=== PATIENT | male | born 1990 | race Caucasian/White ===

== ENCOUNTER 2020-10-26 09:17 | Inpatient (IN) | payer SELFPAY ==
[2020-10-26 09:19] VITALS: BP 125/87; PULSE 102; RESP 15; TEMP 36.6; O2SAT 99; BMI 21.8
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
[2020-10-26 09:41] VITALS: O2SAT 99
[2020-10-26 09:45] LABS: Basophils # 0.1 10^3/uL (0.0-0.1); Basophils % 1.4 %; Eosinophils # 0.3 10^3/uL (0.0-0.8); Eosinophils % 3.6 %; Hemoglobin 15.1 g/dL (11.7-16.6); Lymphocytes # 1.9 10^3/uL (0.8-4.8); Lymphocytes % 22.3 %; Mean Corpuscular HGB Conc 32.8 g/dL (30.0-36.0); Mean Corpuscular Hemoglobin 30.1 pg (28.0-34.0); Mean Corpuscular Volume 91.8 fL (80-94); Mean Platelet Volume 10.1 fL (7.4-10.4); Monocytes # 0.8 10^3/uL (0.2-0.9); Monocytes % 9.5 %; Neutrophils # 5.45 10^3/uL (1.8-7.7); Neutrophils % 62.9 %; Nucleated Red Blood Cells % 0 %; Platelet Count 263 10^3/cmm (130-400); Red Blood Count 5.01 10^6/uL (4.1-5.3); Red Cell Distribution Width 12.6 % (12.1-15.1); White Blood Count 8.7 10^3/uL (4.0-10.0)
[2020-10-26] MEDS: nicotine 21 mg Patch 1 PATCH TRANSDERMA (09:45)
[2020-10-26] MEDS: LORazepam 1 mg Tablet PO (09:45)
[2020-10-26 10:08] LABS: Alanine Aminotransferase 15 U/L (0-41); Albumin Level 3.9 g/dL (3.5-5.2); Alkaline Phosphatase 83 IU/L (40-130); Anion Gap 11.3 (5-19); Aspartate Amino Transferase 13 U/L (0-40); Blood Urea Nitrogen 8 mg/dL (6-20); Calcium 8.7 mg/dL (8.5-10.5); Carbon Dioxide 26 mmol/L (22-29); Chloride 107 mmol/L (98-107); Globulin 2.5 g/dL (1.3-4.6); Glomerular Filtration Rate 97.8 mL/min (90-130); Glucose 92 mg/dL (65-115); Osmolality Calculated 288 mOsm/kg (285-295); Potassium 4.3 mmol/L (3.5-5.1); Sodium 140 mmol/L (136-145); Total Bilirubin 0.2 mg/dL (0.15-1.2); Total Protein 6.4 g/dL (6.6-8.7)
[2020-10-26 10:12] LABS: Acetaminophen < 5.0 ug/mL (10-30); Salicylate < 0.3 mg/dL (3-10)
[2020-10-26 10:39] LABS: Add Urine Microscopic? NO; Charge for UA Resulting for Rev
[2020-10-26 10:58] LABS: Bilirubin Urine Neg (Negative); Blood Urine Neg (Negative); Glucose Urine UA Norm (Normal); Ketones Urine Negative (Negative); Leukocyte Esterase Urine Negative (Negative); Nitrate Urine Negative (Negative); Protein Urine Neg (Negative); Urine Appearance Clear (CLEAR); Urine Color Yellow (Yellow); Urobilinogen Urine Norm (Negative); pH Urine 5 (5-7)
--- NOTE | 2020-10-26 10:58 | PC.NURSE ---
patient is resting. no acute distress noted at this time.
[2020-10-26 11:06] LABS: Amphetamines Screen Urine Positive (Negative); Barbiturates Screen Urine Negative (Negative); Benzodiazepines Screen Urine Negative (Negative); Cocaine Screen Urine Negative (Negative); Opiate Screen Urine Negative (Negative); PCP Screen Urine Negative (Negative); THC Screen Urine Positive (Negative)
[2020-10-26 13:10] VITALS: BP 116/79; PULSE 100; RESP 18; TEMP 36.7; O2SAT 98
[2020-10-26 14:00] VITALS: BP 119/75; PULSE 102; RESP 18; TEMP 36.9; O2SAT 98
[2020-10-26] MEDS: quetiapine 100 mg Tablet 200 MG PO (21:16)
[2020-10-26] MEDS: OLANZapine 5 mg ODT PO (21:17)
[2020-10-26 21:28] VITALS: BP 124/75; PULSE 107; RESP 18; TEMP 37.3; O2SAT 95
[2020-10-26] MEDS: nicotine 2 mg Gum BUCCAL (21:47)
[2020-10-26] MEDS: acetaminophen 325 mg Tablet 650 MG PO (21:55)
--- NOTE | 2020-10-26 22:00 | PC.NURSE ---
Addendum entered by Deysi Worrell RN 10/27/20 01:50: Pt endorses SI without a plan, contracted for safety. Pt states he is having VH, seeing shadows that are tormenting Original Note: Behavior Pt is irritable, yelled at nursing staff to Get the hell out of here. He later apologized for his outburst, stating, Today has not been wonderful, I just upset. Pt stated he had pain in his leg that was rated 6-7, near the site of prosthetic. Tylenol given. Pt requested a Nicotine Patch, offered gum, pt refused. Pt showered to clear his head and He went to bed shortly after this.
[2020-10-27 06:00] VITALS: BP 122/83; PULSE 91; RESP 17; TEMP 36.6; O2SAT 98
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
[2020-10-27 09:30] VITALS: BP 122/83
[2020-10-27] MEDS: cloNIDine 0.1 mg Tablet PO ×2 (09:30→21:30)
[2020-10-27] MEDS: fluoxetine 20 mg Capsule PO (09:30)
[2020-10-27] MEDS: nicotine 21 mg Patch 1 PATCH TRANSDERMA (11:46)
[2020-10-27 14:00] VITALS: BP 103/66; PULSE 93; RESP 20; TEMP 36.2; O2SAT 99
[2020-10-27] MEDS: quetiapine 25 mg Tablet 50 MG PO (15:38)
[2020-10-27 21:30] VITALS: BP 129/73
[2020-10-27] MEDS: quetiapine 100 mg Tablet 200 MG PO (21:30)
[2020-10-27 22:00] VITALS: BP 129/73; PULSE 96; RESP 17; TEMP 36.9; O2SAT 98
[2020-10-27] MEDS: hyDROXYzine 25 mg Capsule 50 MG PO (23:54)
--- NOTE | 2020-10-27 23:56 | PC.NURSE ---
given Vistaril for anxiety
[2020-10-28] MEDS: acetaminophen 325 mg Tablet 650 MG PO (02:42)
[2020-10-28 06:00] VITALS: BP 126/68; PULSE 84; RESP 16; TEMP 36.8; O2SAT 99
[2020-10-28] MEDS: fluoxetine 20 mg Capsule PO (09:17)
[2020-10-28] MEDS: quetiapine 25 mg Tablet 50 MG PO ×2 (09:17→17:51)
[2020-10-28] MEDS: cloNIDine 0.1 mg Tablet PO ×2 (09:17→20:56)
[2020-10-28 14:00] VITALS: BP 128/73; PULSE 97; RESP 20; TEMP 36.6; O2SAT 98
[2020-10-28] MEDS: hyDROXYzine 25 mg Capsule 50 MG PO (14:04)
--- NOTE | 2020-10-28 18:48 | P.PN_ITS ---
Subjective NPU Subjective: Interval history: Patient presents today once again very upset and even more volatile than he was yesterday. He continued to express anger towards his father for being here but further identified that the place he had to stay in [place] was just a trap house. He identified that if he was discharged he might as well just walk in front of a truck or blow his brains out. Then he was very insistent that he let out slamming doors and attacking the door that leads to outside. He was unable to de-escalate and was given some space and was very close to needing a code 10. Mental Status Exam MSE Comments: This is a slender white male in hospital scrubs with limited grooming and eye contact. No abnormal movements except for continued escalating psychomotor agitation. Semicooperative with exam in moderate to extreme distress. Speech was normal rate and volume followed by moments of increased rate and volume. Mood described as shitty, affect congruent. Thought process organized, thought content: Patient endorsed suicidal ideation, there were no delusions reported or noted, he denied any auditory or visual hallucinations. Attention and concentration were mostly intact and memory appeared reliable but none were formally tested. He is alert and oriented x3. Insight and judgment appeared limited versus impaired, impulse control was impaired. Vitals/I&O/Wt Last Vital Signs Temp 98.8 F 10/28/20 20:33 Pulse 87 10/28/20 20:33 Resp 18 10/28/20 20:33 BP 113/73 10/28/20 20:56 Pulse Ox 96 10/28/20 20:33 Weight last 48 hrs Weight 77.111 kg Data NPU : 10/26/20 09:33 10/26/20 09:33 A&P Additional A&P Information (1) Depression: (2) Suicidal ideation: (3) Post traumatic stress disorder: (4) Impulse control disorder, unspecified: Additional A&P Information This is a 30-year-old white male with a long history of methamphetamine and other addiction, depression PTSD and mental health treatment presents off of his medication, angry with active addiction. 1. Continue current medication. 2. Continue every 15 minute checks for safety. 3. Encourage individual, group and milieu therapies. 4. Encourage sober living treatment after discharge at the highest level of care to which he is willing to commit. Involuntary Hold Information 96 Hour Hold: 96 Hour Involuntary Admission: Yes 96 Hour Hold Ending Date: 11/01/20 96 Hour Hold Ending Time: 11:30 Attestations NPU Medical Necessity Statement*: Inpatient hospitalization is medically necessary and the clinically appropriate intervention at this time. We will monitor medications and make changes as indicated. Likely length of stay 2-4 days. Coding Level of Care Code Acute Scheduling Specialist for Wilber Estrella
[2020-10-28 20:33] VITALS: BP 113/73; PULSE 87; RESP 18; TEMP 37.1; O2SAT 96
[2020-10-28] MEDS: quetiapine 100 mg Tablet 200 MG PO (20:55)
[2020-10-28 20:56] VITALS: BP 113/73
[2020-10-29 06:00] VITALS: BP 104/72; PULSE 85; RESP 15; TEMP 36.9; O2SAT 98
[2020-10-29] MEDS: cloNIDine 0.1 mg Tablet PO ×2 (09:09→21:10)
[2020-10-29] MEDS: fluoxetine 20 mg Capsule PO (09:10)
[2020-10-29] MEDS: quetiapine 25 mg Tablet 50 MG PO ×2 (09:10→17:42)
[2020-10-29] MEDS: nicotine 21 mg Patch 1 PATCH TRANSDERMA (11:50)
[2020-10-29 14:00] VITALS: BP 112/73; PULSE 96; RESP 20; TEMP 36.7; O2SAT 97
[2020-10-29] MEDS: ziprasidone 20 mg/mL SDV (14:19)
[2020-10-29] MEDS: water for injection-sterile 10 ML (14:20)
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
[2020-10-29] MEDS: ziprasidone 20 mg/mL SDV IM (15:04)
--- NOTE | 2020-10-29 16:57 | PM.NPN ---
Subjective NPU Subjective: Interval history: Patient presented today continuing to struggle with his anger and irritability. He had an episode again where he was raising his voice, slamming doors banging douglas threats and stomping around. We will go to get but he something to help this time and he got a IM dose of Geodon which helped him calm down but then he slept for much of the remainder of the day. Mental Status Exam MSE Comments: This is a slender white male in hospital scrubs with limited grooming and eye contact. No abnormal movements except for continued escalating psychomotor agitation. 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 Semicooperative with exam in moderate to extreme distress. Speech was normal rate and volume followed by moments of increased rate and volume. Mood not described, affect angry and irritable. Thought process organized, thought content: Patient endorsed suicidal ideation, and was making threats towards others, there were no delusions reported or noted, he denied any auditory or visual hallucinations. Attention and concentration were mostly intact and memory appeared reliable but none were formally tested. He is alert and oriented x3. Insight and judgment appeared limited versus impaired, impulse control was impaired. Vitals/I&O/Wt Last Vital Signs Temp 98.6 F 10/29/20 20:54 Pulse 92 10/29/20 20:54 Resp 16 10/29/20 20:54 BP 107/74 10/29/20 21:10 Pulse Ox 97 10/29/20 20:54 10/29/20 10/29/20 10/30/20 14:59 22:59 06:59 Intake Total Balance Data NPU : 10/26/20 09:33 10/26/20 09:33 A&P Additional A&P Information (1) Depression: (2) Suicidal ideation: (3) Post traumatic stress disorder: (4) Impulse control disorder, unspecified: Additional A&P Information This is a 30-year-old white male with a long history of methamphetamine and other addiction, depression PTSD and mental health treatment presents off of his medication, angry with active addiction. 1. Continue current medication. 2. Continue every 15 minute checks for safety. 3. Encourage individual, group and milieu therapies. 4. Encourage sober living treatment after discharge at the highest level of care to which he is willing to commit. Involuntary Hold Information 96 Hour Hold: 96 Hour Involuntary Admission: Yes 96 Hour Hold Ending Date: 11/01/20 96 Hour Hold Ending Time: 11:30 Attestations NPU Medical Necessity Statement*: Inpatient hospitalization is medically necessary and the clinically appropriate intervention at this time. We will monitor medications and make changes as indicated. Likely length of stay 2-4 days. Coding Level of Care Code Acute Digital Operations Analyst for Wilber Estrella
[2020-10-29 20:54] VITALS: BP 107/74; PULSE 92; RESP 16; TEMP 37; O2SAT 97
[2020-10-29 21:10] VITALS: BP 107/74
[2020-10-29] MEDS: quetiapine 100 mg Tablet 200 MG PO (21:10)
[2020-10-30 06:00] VITALS: BP 99/70; PULSE 95; RESP 20; TEMP 36.9; O2SAT 97
[2020-10-30] MEDS: quetiapine 25 mg Tablet 50 MG PO ×2 (08:56→21:14)
[2020-10-30] MEDS: cloNIDine 0.1 mg Tablet PO ×2 (08:56→21:13)
[2020-10-30] MEDS: fluoxetine 20 mg Capsule PO (08:56)
[2020-10-30] MEDS: ondansetron 4 MG Tablet PO (11:45)
--- NOTE | 2020-10-30 11:52 | PC.NURSE ---
prn 1145 administered Zofran 4mg for pt c/o of nausea, will continue to monitor pt.
[2020-10-30 14:00] VITALS: BP 120/77; PULSE 113; RESP 18; TEMP 36.6; O2SAT 96
[2020-10-30] MEDS: ziprasidone 20 mg/mL SDV (14:22)
[2020-10-30] MEDS: water for injection-sterile 10 ML (14:23)
--- NOTE | 2020-10-30 14:55 | PC.NURSE ---
prn 1422 administered Geodon 20mg for severe agitation, pt was very upset and yelling also making verbal threats. will continue to monitor pt.
--- NOTE | 2020-10-30 16:04 | PM.NPN ---
Subjective NPU Subjective: Interval history: Patient presents today reporting that he is getting a better and that the [employer] has helped with some of his anger management issues. For the first time that he is been here he was able to calmly discuss his circumstances and be open to possibly talking to social work about what comes next. We discussed continuing the [employer] possibly after discharge and then considering using that as his central medication instead of the Seroquel at this point not sure which medicine to go with. Mental Status Exam MSE Comments: This is a slender white male in hospital scrubs with limited grooming and eye contact. No abnormal movements except for mild psychomotor retardation. 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 Cooperative with exam in no acute distress. Speech was normal rate and volume. Mood described as okay, affect much former. Thought process organized, thought content: Patient denied suicidal or homicidal ideation, there were no delusions reported or noted, he denied any auditory or visual hallucinations. Attention and concentration were mostly intact and memory appeared reliable but none were formally tested. He is alert and oriented x3. Insight and judgment appeared improving, impulse control was improving. Vitals/I&O/Wt Last Vital Signs Temp 98.3 F 10/30/20 20:22 Pulse 98 10/30/20 20:22 Resp 15 10/30/20 20:22 BP 116/74 10/30/20 21:13 Pulse Ox 96 10/30/20 20:22 Data NPU : 10/26/20 09:33 10/26/20 09:33 A&P Additional A&P Information (1) Depression: (2) Suicidal ideation: (3) Post traumatic stress disorder: (4) Impulse control disorder, unspecified: Additional A&P Information This is a 30-year-old white male with a long history of methamphetamine and other addiction, depression PTSD and mental health treatment presents off of his medication, angry with active addiction. 1. Continue current medication. 2. Continue every 15 minute checks for safety. 3. Encourage individual, group and milieu therapies. 4. Encourage sober living treatment after discharge at the highest level of care to which he is willing to commit. Involuntary Hold Information 96 Hour Hold: 96 Hour Involuntary Admission: Yes 96 Hour Hold Ending Date: 11/01/20 96 Hour Hold Ending Time: 11:30 Attestations NPU Medical Necessity Statement*: Inpatient hospitalization is medically necessary and the clinically appropriate intervention at this time. We will monitor medications and make changes as indicated. Likely length of stay 1-3 days. Coding Level of Care Code Acute Mushroom Spawn Maker for Wilber Estrella
[2020-10-30 20:22] VITALS: BP 116/74; PULSE 98; RESP 15; TEMP 36.8; O2SAT 96
[2020-10-30 21:13] VITALS: BP 116/74
[2020-10-30] MEDS: quetiapine 100 mg Tablet 200 MG PO (21:13)
[2020-10-31 06:00] VITALS: BP 108/72; PULSE 98; RESP 16; TEMP 37.1; O2SAT 97
[2020-10-31 08:46] VITALS: BP 108/72
[2020-10-31] MEDS: cloNIDine 0.1 mg Tablet PO ×2 (08:46→21:55)
[2020-10-31] MEDS: quetiapine 25 mg Tablet 50 MG PO ×3 (08:46→21:54)
[2020-10-31] MEDS: fluoxetine 20 mg Capsule PO (08:47)
[2020-10-31 14:00] VITALS: BP 98/64; PULSE 92; RESP 18; TEMP 36.2; O2SAT 97
--- NOTE | 2020-10-31 14:16 | P.PN_ITS ---
Subjective NPU Subjective: Interval history: Patient continues to show improvement over the last couple of days and is able to manage his irritability on anger issues. He denied current craving and did work with social work team SOC. He was slightly less isolative and more open to assistance. Mental Status Exam MSE Comments: This is a slender white male in hospital scrubs with limited grooming and eye contact. No abnormal movements except for mild psychomotor retardation. 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 Cooperative with exam in no acute distress. Speech was normal rate and volume. Mood described as a little better, affect much calmer. Thought process o rganized, thought content: Patient denied suicidal or homicidal ideation, there were no delusions reported or noted, he denied any auditory or visual hallucinations. Attention and concentration were mostly intact and memory appeared reliable but none were formally tested. He is alert and oriented x3. Insight and judgment appeared improving, impulse control was improving. 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 1. Continue current medication. 2. Continue every 15 minute checks for safety. 3. Encourage individual, group and milieu therapies. 4. Encourage sober living treatment after discharge at the highest level of care to which he is willing to commit. 5. Likely plan for discharge in the morning. Involuntary Hold Information 2 96 Hour Hold: 96 Hour Involuntary Admission: Yes 96 Hour Hold Ending Date: 11/01/20 96 Hour Hold Ending Time: 11:30 Attestations NPU Medical Necessity Statement*: Inpatient hospitalization is medically necessary and the clinically appropriate intervention at this time. We will monitor medications and make changes as indicated. Likely length of stay 1-2 days. Coding Level of Care Code Acute Hotel Server for Wilber Estrella
[2020-10-31] MEDS: ziprasidone 20 mg/mL SDV (15:15)
[2020-10-31] MEDS: water for injection-sterile 10 ML (15:17)
--- NOTE | 2020-10-31 15:19 | PC.NURSE ---
PRN anxiety Patient requested medication for anxiety. Given 20 mg [address] IM per Dr Raphael
[2020-10-31 21:19] VITALS: BP 102/71; PULSE 88; RESP 20; TEMP 36.7; O2SAT 96
[2020-10-31 21:55] VITALS: BP 102/71
[2020-10-31] MEDS: quetiapine 100 mg Tablet 200 MG PO (21:55)
[2020-11-01 03:54] VITALS: BP 87/58; PULSE 86; RESP 16; TEMP 37.1; O2SAT 96
[2020-11-01] MEDS: cloNIDine 0.1 mg Tablet PO (08:16)
[2020-11-01] MEDS: fluoxetine 20 mg Capsule PO (08:16)
[2020-11-01] MEDS: quetiapine 25 mg Tablet 50 MG PO (08:16)
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
[2020-11-01 11:18] VITALS: BP 87/58; PULSE 86; RESP 16; TEMP 37.1; O2SAT 96
[2020-11-01] MEDS: nicotine 21 mg Patch 1 PATCH TRANSDERMA (12:57)
== END 2020-11-01 13:28 | disposition home or self-care (01) | DRG 881 ==
LOC: ER 10:58 → NP 20:10
PROVIDERS: Admitting Provider Psychiatry & Neurology Psychiatry; Emergency Provider Family Medicine; Visit Provider Psychiatry & Neurology Psychiatry
DX: F32.9 Major depressive disorder, single episode, unspecified (principal); R45.851 Suicidal ideations; F15.20 Other stimulant dependence, uncomplicated; F43.10 Post-traumatic stress disorder, unspecified; F63.9 Impulse disorder, unspecified; F17.210 Nicotine dependence, cigarettes, uncomplicated; F12.90 Cannabis use, unspecified, uncomplicated; Z59.0 Homelessness; Z91.5 Personal history of self-harm; Z89.512 Acquired absence of left leg below knee; Z87.828 Personal history of other (healed) physical injury and trauma; Z63.8 Other specified problems related to primary support group
CPT/HCPCS: 80053; 80306; 80307; 81003; 85025; 96372; 99285; J3486; Q0162

== ENCOUNTER 2020-11-07 10:15 | Emergency (ER) | payer SELFPAY ==
--- NOTE | 2020-11-07 10:23 | XR_ITS ---
WS: [id number] XR chest 1V portable [id number] REASON FOR EXAM: chest pain FINDINGS: The heart and the mediastinum are within normal limits. Calcified granulomatous changes in both hemithoraces with small noncalcified nodules in both hemithor aces. There is flattening of both hemidiaphragms suggesting an element of hyperexpansion. No acute pulmonar y parenchymal or pleural abnormality is identified. XR/XR chest 1V portable [id number] IMPRESSION: No acute chest abnormality as above.
[2020-11-07 10:53] VITALS: BP 129/84; PULSE 132; RESP 18; TEMP 37.9; O2SAT 100; BMI 21.2
--- NOTE | 2020-11-07 16:29 | ED_ITS ---
HPI - COVID General: Chief Complaint: COVID symptoms Stated Complaint: body aches, coughing, headache Time Seen by Provider: 11/07/20 16:27 Triage information: Has fever, cough or shortness of breath . No known COVID + exposure last 14 days History of Present Illness: HPI Narrative: This patient is a 30-year-old male who presents to the emergency department complaining of congestion cough and body aches. Patient was recently admitted to the psychological unit here at the facility and was exposed to Covid. Patient's breathing is under percent on room air. Patient also request his morning dose of Seroquel which is 50 mg. Patient states that he did not take it this morning. The medical evaluation treat as needed MD complaint: has COVID symptoms COVID 19 common symptoms: positive non-productive cough, fatigue and body aches; negative fever(s), chills, productive cough, dyspnea, headache(s), throat pain, nausea or vomiting COVID 19 other sytmptoms: negative chest pain COVID Results: SARS-CoV-2 Antigen (Rapid) Positive (Negative) H 11/07/20 16:41 11/07/20 Review of Systems General: Reports: 10 or more systems reviewed and unremarkable except in HPI and below Const: Reports: body aches and fatigue; Denies: fever(s) or chills Eyes: Denies: change in vision or blurry vision ENMT: Denies: throat pain, hoarseness or mouth pain Card: Denies: chest pain, palpitations, irregular heart rhythm, edema, swelling of feet/ankles or lightheadedness Resp: Reports: non-productive cough; Denies: dyspnea, productive cough, wheezing or pain on inspiration GI: Denies: abdominal pain, nausea or vomiting : Denies: flank pain, dysuria, urinary frequency, urinary urgency or urinary hesitancy Musc: Denies: neck pain, back pain, extremity pain, extremity swelling, joint pain, joint swelling, joint redness, joint warmth or limited range of motion Skin/Breast: Denies: rash, pruritus, erythema or skin tenderness Neuro: Denies: headache(s), numbness in extremities or weakness in extremities Psych: Denies: anxiety or depression PFS ED PFSH: Social History Smoking and tobacco status: current every day smoker cigarettes Packs smoked per day: 1 Alcohol intake: never Physical Exam Const: COMMON NORMALS: no acute distress, average body habitus, patient oriented x3, no limitations, healthy appearing, alert and well nourished HENMT: COMMON NORMALS: normocephalic, atraumatic, hearing grossly normal bilaterally, external ears normal, EAC's normal, TM's normal bilaterally, Normal external nose present, Normal nasal mucous membranes and turbinates present, moist oral mucous membranes, oropharynx normal, dentition normal and gingiva normal HEAD & SCALP: normocephalic and atraumatic NOSE: Normal external nose present and Normal nasal mucous membranes and turbinates present EXTERNAL EAR: Yes external ears normal EXTERNAL AUDITORY CANAL: EAC's normal TYMPANIC MEMBRANE: TM's normal bilaterally Neck/C-Spine: COMMON NORMALS: full ROM, no lymphadenopathy, supple, no meningeal signs, no JVD, Thyroid normal and No carotid bruits THYROID: Thyroid normal Chest: COMMONS NORMALS: normal inspection of the chest, normal palpation of entire chest wall, normal inspection of the breasts and normal palpation of the breasts Breast/axilla inspection: Yes normal inspection of the breasts BREAST/AXILLA PALPATION: Yes normal palpation of the breasts Resp: COMMON NORMALS: normal respiratory effort, No retractions, No use of accessory muscles, clear to auscultation bilaterally and percussion normal AUSCULTATION: clear to auscultation bilaterally PERCUSSION: percussion normal Cardio: COMMON NORMALS: no JVD, regular rate, regular rhythm, S1 normal heart sound present, S2 normal heart sound present, No gallops present (Cardio), No clicks present (Cardio), No murmurs present (Cardio), No rub (Cardio) and Peripheral pulses 2+ throughout RATE: regular rate RHYTHM: regular rhythm HEART SOUNDS: S1 normal heart sound present and S2 normal heart sound present PERIPHERAL PULSES: Peripheral pulses 2+ throughout GI: COMMON NORMALS: Normal to inspection, nondistended, normoactive bowel sounds present, Soft to palpation, non-tender, No hepatosplenomegaly present, no masses and no bruits PALPATION: Yes Soft to palpation and Yes No hepatosplenomegaly present : COMMON NORMALS: Yes no CVA tenderness BLADDER/KIDNEY EXAM: Yes no CVA tenderness Back/Pelvis: COMMON NORMALS: no CVA tenderness, thoracic and lumbar spine normal to inspection, no thoracic nor lumbar tenderness, thoraco-lumbar ROM normal and straight leg raise negative bilaterally Extremity: COMMON NORMALS: normal to inspection, full ROM, capillary refill normal, no joint enlargement, no clubbing, cyanosis or edema, no calf tenderness and no pedal edema Neuro: COMMON NORMALS: patient oriented x3 SENSORIUM/ORIENTATION: Yes alert MENINGEAL SIGNS: Yes no meningeal signs Course Reevaluation(s): Reevaluation #1: Patient is Covid positive. Patient needs to proceed with Covid precautions. Viral syndrome. Encourage p.o. fluids. Tylenol Motrin as needed for body aches. Self quarantine. Least 9 to 10 days. Return to the emergency department development of shortness of breath. Time: 17:42 Vital Signs: Vital signs: Vital Signs Temperature 100.3 F H 11/07/20 10:53 Pulse Rate 100 11/07/20 16:56 Respiratory Rate 18 11/07/20 10:53 Blood Pressure 129/84 11/07/20 10:53 Pulse Oximetry 98 11/07/20 16:56 MDM - COVID MDM Narrative: Medical decision making narrative: This patient is a 30-year-old male who presents to the emergency department complaining of congestion cough and body aches. Patient was recently admitted to the psychological unit here at the facility and was exposed to Covid. Patient's breathing is under percent on room air. Patient also request his morning dose of Seroquel which is 50 mg. Patient states that he did not take it this morning. The medical evaluation treat as needed Patient is Covid positive. Patient needs to proceed with Covid precautions. Viral syndrome. Encourage p.o. fluids. Tylenol Motrin as needed for body aches. Self quarantine. Least 9 to 10 days. Return to the emergency department development of shortness of breath. Differential Diagnosis: Differential diagnosis: Likely COVID 19 and other viral infection Medical Records: Attestation: I reviewed the patient's medical records. Lab Data: Attestation: I reviewed the patient's lab results. Labs: Lab Results 11/07/20 Range/Units 16:41 SARS-CoV-2 Ag (Rap id) Positive H (Negative) Imaging Data: CXR: Attestation: I personally reviewed and interpreted this imaging study as follows: Radiologist's impression: IMPRESSION: No acute chest abnormality as above. COVID Results: SARS-CoV-2 Antigen (Rapid) Positive (Negative) H 11/07/20 16:41 11/07/20 Discharge Plan Discharge Patient Disposition: Home Clinical Impression: COVID-19, Viral infection Condition: Stable Prescriptions: No Action quetiapine 25 mg Tablet 50 mg PO TID 30 Days Qty: 180 RF: 1 clonidine HCl 0.1 mg Tablet 0.1 mg PO BID 30 Days Qty: 60 RF: 1 quetiapine [Seroquel] 200 mg Tablet 200 mg PO BEDTIME 30 Days Qty: 30 RF: 1 fluoxetine 20 mg Capsule 20 mg PO DAILY 30 Days Qty: 30 RF: 1 Discharge Orders: Discharge ED (Routine); Ordered 11/07/20 Ordered By: Yon Hernandez Discharge Diet: Advance as tolerated Discharge Activity: Resume usual activity Patient Instructions: Opioid Safety Activity Restrictions/Additional Instructions: Patient is Covid positive. Patient needs to proceed with Covid precautions. Viral syndrome. Encourage p.o. fluids. Tylenol Motrin as needed for body aches. Self quarantine. Least 9 to 10 days. Return to the emergency department development of shortness of breath. Coding Level of Care Code ED Office Automation Technician for Wilber Fwvilma Exam Comprehensive
[2020-11-07 16:56] VITALS: PULSE 100; O2SAT 98
[2020-11-07 17:39] LABS: SARS Covid-2 Antigen Positive (Negative)
[2020-11-07] MEDS: quetiapine 25 mg Tablet 50 MG PO (17:56)
[2020-11-07] MEDS: acetaminophen 325 mg Tablet 650 MG PO (17:56)
== END 2020-11-07 17:56 | disposition home or self-care (01) ==
PROVIDERS: Physician Assistant; Emergency Provider Emergency Medicine
DX: U07.1 COVID-19 (principal); F17.210 Nicotine dependence, cigarettes, uncomplicated
CPT/HCPCS: 71045; 87426; 99283

== ENCOUNTER 2020-11-19 10:32 | Emergency (ER) | payer SELFPAY ==
[2020-11-19 10:50] VITALS: BP 138/73; PULSE 124; RESP 24; TEMP 37.4; O2SAT 100
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
[2020-11-19 11:44] VITALS: BP 138/73; PULSE 124; TEMP 37.4; O2SAT 100
--- NOTE | 2020-11-20 09:08 | DCPLANNER ---
recreation establishment manager had message to schedule a follow up appointment for patient with Dr. Bassett. recreation establishment manager called the office of Dr. Bassett, spoke with Violet, gave clinic patients information. recreation establishment manager was told that patients information would be printed and reviewed. Clinic will call patient with appointment information.
--- NOTE | 2020-11-21 07:36 | DCPLANNER ---
Addendum entered by Carmelita Phoenix 05/02/21 17:29: Patient had a follow up appointment scheduled with Dr. Bassett - patient did not attend appointment. Original Note: Patient has a follow up appointment scheduled for January at 10:[address] Bassett. Clinic will call patient with appointment information.
== END 2020-11-19 12:15 | disposition home or self-care (01) ==
PROVIDERS: Emergency Provider Physician Assistant
DX: F41.9 Anxiety disorder, unspecified (principal); Z76.0 Encounter for issue of repeat prescription; Z59.0 Homelessness; F17.210 Nicotine dependence, cigarettes, uncomplicated
CPT/HCPCS: 99281

== ENCOUNTER → 2021-02-19 15:44 | Outpatient (BNVA) | payer OTHER, SELFPAY | PROVIDERS: PCP Urology; Visit Provider Nurse Practitioner Psychiatric/Mental Health | DX: Z03.89 Encounter for observation for other suspected diseases and conditions ruled out (principal) | CPT/HCPCS: 84439; 84443 ==

== ENCOUNTER 2022-02-06 09:15 | Inpatient (IN) | payer MEDICAID, SELFPAY ==
[2022-02-06 09:20] VITALS: BP 130/85; PULSE 126; RESP 20; TEMP 36.8; O2SAT 98; BMI 21.8
--- NOTE | 2022-02-06 09:33 | W.ED.PSYCHS ---
HPI - Psych General: Chief Complaint: Psychiatric Symptoms Stated Complaint: Mental Health Eval Time Seen by Provider: 02/06/22 09:33 History of Present Illness: Mr. Santo is a 31-year-old male with history of psychiatric disorder presenting to the emergency department due to worsening psychiatric concerns. He reports he had to go out of state for a family and ended up in al[place] and when he got back he did not have his medications anymore. For the past 2 months he has had increasing issues with depression and suicidal thoughts. He endorses history of PTSD and worsening dreams and nightmares. He has hallucinations that are auditory that tell him to do bad and violent things. Additionally notes moodiness and homicidal thoughts. He endorses sleep difficulty. Overall course of symptoms has worsened. Intensity is severe. When he was on medications he had improvement. No other specific changes in health, exacerbating, or alleviating factors identified. Onset (ago): week(s) Duration: getting worse History of same: Yes Associated psychiatric symptoms: depression, suicidal ideation, homicidal ideation and auditory hallucinations If self harm: admits thoughts of self harm Review of Systems General: Reports: 10 or more systems reviewed and unremarkable except in HPI and below PFSH ED PFSH: Medical History Major depression, recurrent, chronic Information retrieved and edited from Behavioral Assessment Report completed on 11/19/20: Symptoms include depressed mood(crying frequently and feeling down), irritability, chaotic sleep(nightmares and living on the street), psychomotor agitation, feelings of worthlessness, suicidal thoughts(random). Psychiatric care Social History Smoking and tobacco status: current every day smoker cigarettes Packs smoked per day: 1 Alcohol intake: never Physical Exam Const: COMMON NORMALS: alert GENERAL APPEARANCE: cooperative and well developed HENMT: COMMON NORMALS: normocephalic and atraumatic HEAD & SCALP: normocephalic and atraumatic Eye: COMMON NORMALS: conjunctivae normal CONJUNCTIVA: Yes conjunctivae normal SCLERA: sclerae normal Neck/C-Spine: COMMON NORMALS: supple GENERAL: Yes trachea midline Resp: COMMON NORMALS: clear to auscultation bilaterally EFFORT & INSPECTION: Yes able to speak in complete sentences AUSCULTATION: clear to auscultation bilaterally Cardio: COMMON NORMALS: regular rate and regular rhythm RATE: regular rate RHYTHM: regular rhythm GI: COMMON NORMALS: Soft to palpation PALPATION: Yes Soft to palpation and No Tenderness to palpation present (GI) Extremity: NARRATIVE EXTREMITY EXAM: Left BKA GENERAL: Yes normal exam except as noted and No edema Neuro: COMMON NORMALS: moves all extremities SENSORIUM/ORIENTATION: Yes alert and No Orientation impaired Psych: COMMON NORMALS: mental status grossly normal and Normal thought process present ATTITUDE: Yes Guarded attititude/behavior present and Yes agitated THOUGHT PROCESS: Normal thought process present Skin: NARRATIVE SKIN EXAM: Multiple superficial lacerations to left inner wrist region on the radial side. No active bleeding or repairable lesions. Course Vital Signs: Vital signs: Vital Signs Temperature 97.5 F L 02/07/22 06:00 Pulse Rate 85 02/07/22 06:00 Respiratory Rate 18 02/07/22 06:00 Blood Pressure 103/67 02/07/22 06:00 Pulse Oximetry 96 02/07/22 06:00 Oxygen Delivery Me thod 02/07/22 06:00 MDM - Psych Medical Decision Making 31-year-old gentleman with psychiatric history presenting due to worsening psychiatric symptoms in the context of not taking medication. Patient endorses hallucinations in addition to suicidal ideation. Patient is nontoxic in appearance and self injury is superficial not requiring laceration repair. Laboratory studies notable for no leukocytosis, normal hemoglobin. Metabolic panel without significant derangement. Toxic ingestions negative as tested with urinary drug screen still pending. Based on ED evaluation and clinical history provided no indication for imaging. The results of ED evaluation were discussed with the patient including plan for admission due to requirement for level of care not available if discharged to prevent significant worsening/deterioration. The patient endorses suicidal ideation and auditory hallucinations including command hallucinations. Patient agreeable with plan. Patient discussed with psychiatry service who accepted the patient as an admission to neuropsych unit. Medical Records I reviewed the patient's medical records. Lab Data I reviewed the patient's lab results. : 02/06/22 09:50 02/06/22 09:50 Laboratory Results WBC 8.7 10^3/uL (4.0-10.0) 02/06/22 09:50 RBC 5.37 10^6/uL (4.1-5.3) H 02/06/22 09:50 Hgb 16.1 g/dL (11.7-16.6) 02/06/22 09:50 Hct 47.5 % (42.0-52.0) 02/06/22 09:50 MCV 88.5 fl (80-94) 02/06/22 09:50 MCH 30.0 pg (28.0-34.0) 02/06/22 09:50 MCHC 33.9 g/dL (30.0-36.0) 02/06/22 09:50 RDW 13.2 % (12.1-15.1) 02/06/22 09:50 Plt Count 321 10^3/cmm (130-400) 02/06/22 09:50 MPV 10.0 fL (7.4-10.4) 02/06/22 09:50 Neut % (Auto) 64.1 % 02/06/22 09:50 Lymph % (Auto) 25.3 % 02/06/22 09:50 Adams % (Auto) 6.8 % 02/06/22 09:50 Eos % (Auto) 2.5 % 02/06/22 09:50 Baso % (Auto) 1.0 % 02/06/22 09:50 Neut # (Auto) 5.54 10^3/uL (1.8-7.7) 02/06/22 09:50 Lymph # (Auto) 2.2 10^3/uL (0.8-4.8) 02/06/22 09:50 Adams # (Auto) 0.6 10^3/uL (0.2-0.9) 02/06/22 09:50 Eos # (Auto) 0.2 10^3/uL (0.0-0.8) 02/06/22 09:50 Baso # (Auto) 0.1 10^3/uL (0.0-0.1) 02/06/22 09:50 Nucleated RBC % (auto) 0 % 02/06/22 09:50 Nucleated RBCs # 0.0 /100WBC 02/06/22 09:50 Sodium 138 mmol/L (136-145) 02/06/22 09:50 Potassium 3.9 mmol/L (3.5-5.1) 02/06/22 09:50 Chloride 100 mmol/L (98-107) 02/06/22 09:50 Carbon Dioxide 28 mmol/L (22-29) 02/06/22 09:50 Anion Gap 13.9 (5-19) 02/06/22 09:50 BUN 10 mg/dL (6-20) 02/06/22 09:50 Creatinine 1.0 mg/dL (0.7-1.2) 02/06/22 09:50 GFR Calculation 86.1 mL/min (90-130) L 02/06/22 09:50 Glucose 93 mg/dL (65-115) 02/06/22 09:50 Calculated Osmolality 285 mOsm/kg (285-295) 02/06/22 09:50 Calcium 9.5 mg/dL (8.5-10.5) 02/06/22 09:50 Total Bilirubin 0.3 mg/dL (0.15-1.2) 02/06/22 09:50 AST 16 U/L (0-40) 02/06/22 09:50 ALT 14 U/L (0-41) 02/06/22 09:50 Alkaline Phosphatase 107 U/L (40-130) 02/06/22 09:50 Total Protein 7.6 g/dL (6.6-8.7) 02/06/22 09:50 Albumin 4.6 g/dL (3.5-5.2) 02/06/22 09:50 Globulin 3.0 g/dL (1.3-4.6) 02/06/22 09:50 TSH 0.91 uIU/mL (0.27-4.20) 02/06/22 09:50 Salicylates < 0.3 mg/dL (3-10) L 02/06/22 09:50 Acetaminophen < 5.0 ug/mL (10-30) L 02/06/22 09:50 Ethyl Alcohol < 10 mg/dL (0-10) 02/06/22 09:50 Discharge Plan Discharge Patient Disposition: Admitted As Inpatient Admit Provider: Cecil Salomon Clinical Impression: Suicidal ideation, Auditory hallucinations Condition: Stable Coding Level of Care Code ED Supervisor Farm Equipment Maintenance for Chg Fwd Exam Comprehensive
[2022-02-06] MEDS: LORazepam 1 mg Tablet PO (10:05)
[2022-02-06] MEDS: nicotine 14 mg Patch 1 PATCH TRANSDERMA (10:05)
[2022-02-06 10:13] LABS: Basophils # 0.1 10^3/uL (0.0-0.1); Eosinophils # 0.2 10^3/uL (0.0-0.8); Eosinophils % 2.5 %; Hematocrit 47.5 % (42.0-52.0); Hemoglobin 16.1 g/dL (11.7-16.6); Lymphocytes # 2.2 10^3/uL (0.8-4.8); Lymphocytes % 25.3 %; Mean Corpuscular HGB Conc 33.9 g/dL (30.0-36.0); Mean Corpuscular Volume 88.5 fl (80-94); Monocytes # 0.6 10^3/uL (0.2-0.9); Monocytes % 6.8 %; Neutrophils # 5.54 10^3/uL (1.8-7.7); Neutrophils % 64.1 %; Nucleated Red Blood Cells % 0 %; Platelet Count 321 10^3/cmm (130-400); Red Blood Count 5.37 10^6/uL (4.1-5.3); Red Cell Distribution Width 13.2 % (12.1-15.1); White Blood Count 8.7 10^3/uL (4.0-10.0)
[2022-02-06 10:47] LABS: Alanine Aminotransferase 14 U/L (0-41); Albumin Level 4.6 g/dL (3.5-5.2); Alkaline Phosphatase 107 U/L (40-130); Anion Gap 13.9 (5-19); Aspartate Amino Transferase 16 U/L (0-40); Blood Urea Nitrogen 10 mg/dL (6-20); Calcium 9.5 mg/dL (8.5-10.5); Carbon Dioxide 28 mmol/L (22-29); Chloride 100 mmol/L (98-107); Glomerular Filtration Rate 86.1 mL/min (90-130); Glucose 93 mg/dL (65-115); Osmolality Calculated 285 mOsm/kg (285-295); Potassium 3.9 mmol/L (3.5-5.1); Sodium 138 mmol/L (136-145); Thyroid Stimulating Hormone 0.91 uIU/mL (0.27-4.20); Total Bilirubin 0.3 mg/dL (0.15-1.2); Total Protein 7.6 g/dL (6.6-8.7)
[2022-02-06 10:48] LABS: Acetaminophen < 5.0 ug/mL (10-30); Alcohol Level < 10 mg/dL (0-10); Salicylate < 0.3 mg/dL (3-10)
[2022-02-06 14:06] VITALS: PULSE 110; RESP 20; TEMP 36.8; O2SAT 98
[2022-02-06 14:56] VITALS: BP 130/85; PULSE 110; RESP 20; TEMP 36.8
[2022-02-06] MEDS: LORazepam 2 mg Tablet PO (15:35)
[2022-02-06] MEDS: hyDROXYzine 25 mg Capsule 50 MG PO (15:35)
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
[2022-02-06] MEDS: nicotine 2 mg Gum BUCCAL (19:06)
[2022-02-06] MEDS: quetiapine 100 mg Tablet 200 MG PO (21:30)
[2022-02-06 22:00] VITALS: BP 132/82; PULSE 89; RESP 18; TEMP 36.8; O2SAT 97
--- NOTE | 2022-02-07 | PC.NURSE ---
Patient resting quietly in bed with eyes closed at this time. No signs of distress or withdrawal. Will monitor throughout night.
--- NOTE | 2022-02-07 04:00 | PC.NURSE ---
Patient did not want his VS taken at 0400. Scored 0 on CIWA. Will take VS at 0600. Resting quietly this shift with no signs of distress.
[2022-02-07 06:00] VITALS: BP 103/67; PULSE 85; RESP 18; TEMP 36.4; O2SAT 96
[2022-02-07] MEDS: thiamine 100 mg Tablet PO (07:54)
[2022-02-07] MEDS: folic acid 1 mg Tablet PO (07:54)
[2022-02-07] MEDS: multivitamin therapeutic Tablet 1 TAB PO (07:54)
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
[2022-02-07] MEDS: fluoxetine 20 mg Capsule PO (10:05)
[2022-02-07] MEDS: OLANZapine 5 mg ODT PO (11:15)
[2022-02-07] MEDS: hyDROXYzine 25 mg Capsule 50 MG PO (11:15)
--- NOTE | 2022-02-07 11:16 | PC.NURSE ---
PRN VISTARIL & ZYPREXA ZYDIS VISTARIL 50 MG GIVEN PO PER PT C/O ANXIETY, ZYPREXA ZYDIS 5 MG GIVEN PO PER PT C/O AGITATION/PARANOIA. 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 STAFF WILL CONT TO MONITOR FOR DESIRED MED EFFECTIVENESS.
[2022-02-07] MEDS: nicotine 21 mg Patch 1 PATCH TRANSDERMA (11:21)
[2022-02-07 11:51] LABS: Amphetamines Screen Urine Negative (Negative); Barbiturates Screen Urine Negative (Negative); Benzodiazepines Screen Urine Positive (Negative); Cocaine Screen Urine Negative (Negative); Opiate Screen Urine Negative (Negative); PCP Screen Urine Negative (Negative); THC Screen Urine Negative (Negative)
[2022-02-07 12:15] LABS: Amphetamines Screen Urine Negative (Negative); Barbiturates Screen Urine Negative (Negative); Benzodiazepines Screen Urine Positive (Negative); Cocaine Screen Urine Negative (Negative); Opiate Screen Urine Negative (Negative); PCP Screen Urine Negative (Negative); THC Screen Urine Negative (Negative)
[2022-02-07] MEDS: quetiapine 100 mg Tablet PO (18:13)
[2022-02-07 20:03] VITALS: BP 109/73; PULSE 90; RESP 18; O2SAT 97
[2022-02-07] MEDS: quetiapine 100 mg Tablet 200 MG PO (20:22)
[2022-02-07] MEDS: acetaminophen 325 mg Tablet 650 MG PO (20:22)
--- NOTE | 2022-02-08 00:51 | PC.NURSE ---
Patient currently sleeping in room with eyes closed. No signs of distress noted. CIWA scores this shift have been 0. No signs of ETOH withdrawal. Did take tylenol earlier with HS meds. C/O skip. hip pain. Reported relief. VS not completed @ 12am per request of patient.
--- NOTE | 2022-02-08 05:25 | PC.NURSE ---
Patient has rested comfortably throughout the night. No signs of distress or withdrawal present. Has scored 0 on all CIWA this shift.
[2022-02-08 06:00] VITALS: BP 105/67; PULSE 78; RESP 18; O2SAT 98
[2022-02-08] MEDS: folic acid 1 mg Tablet PO (08:29)
[2022-02-08] MEDS: multivitamin therapeutic Tablet 1 TAB PO (08:29)
[2022-02-08] MEDS: thiamine 100 mg Tablet PO (08:29)
[2022-02-08] MEDS: fluoxetine 20 mg Capsule PO (08:30)
[2022-02-08] MEDS: quetiapine 100 mg Tablet PO ×2 (08:31→14:34)
--- NOTE | 2022-02-08 13:21 | W.PM.NPUPNS ---
Subjective NPU Subjective: Patient is a 31-year-old white male with PTSD and depression admitted with recent onset of severe alcohol abuse currently on a CIWA. He continued to report depressed mood. He had reported having cravings for alcohol. He reported no side effects from the reinitiation of Seroquel. He had reported some improvement in sleep. He continued to report feeling paranoid and reported being easily startled here on the milieu. He continued to isolate himself and reported having little desire to be in groups here. He had reported some decrease in irritability but reported continued feelings of hopelessness. He had reported having occasional suicidal thoughts and reported continued hallucinations reporting that voices continue to tell him to drown himself. Mental Status Exam MSE Comments: This is a slender white male in hospital scrubs with appropriate grooming and eye contact. He is alert and oriented x3. No abnormal movements except for mild psychomotor retardation. 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 Cooperative with exam in no acute distress. Speech was normal rate and volume with occasional brief periods of increased latency. Mood described as depressed. His affect was mood congruent and restricted in range. Thought process was linear logical and organized. thought content: He endorsed suicidal ideation with reports of command auditory hallucinations telling him to drown himself. He did appear at times distracted and appeared to be responding to internal stimuli. There were no delusions reported or noted, he denied any auditory or visual hallucinations. Attention and concentration were impaired. Insight was fair and judgment was poor. Impulse control appeared guarded at this time. Vitals/I&O/Wt Last Vital Signs Temp 97.5 F L 02/07/22 06:00 Pulse 78 02/08/22 06:00 Resp 18 02/08/22 06:00 BP 105/67 02/08/22 06:00 Pulse Ox 98 02/08/22 06:00 O2 Del Method 02/07/22 06:00 Data NPU : 02/06/22 09:50 02/06/22 09:50 A&P Assessment and plan (1) Major depression, recurrent, chronic: (2) Generalized anxiety disorder: (3) Post traumatic stress disorder: (4) Alcohol abuse: Plan 31-year-old white male with a history of PTSD major depressive disorder generalized anxiety disorder admitted with reemergence of auditory hallucinations increased depressed mood and exacerbation of PTSD symptoms along with increased alcohol consumption. 1.? Examined previous records, will restart seroquel titrating back to 100mg bid and 200mg at night. Increase prozac to 30mg in am with titration back to 40mg daily. CIWA for alcohol withdrawal. 2.? Encourage individual, group and milieu therapy 3.? Continue q-15 minute check for safety 4.? Recommend sober living treatment at the highest level of care to which the patient is willing to commit. Involuntary Hold Information 96 Hour Hold: 96 Hour Involuntary Admission: Yes 96 Hour Hold Ending Date: 11/01/20 96 Hour Hold Ending Time: 11:30 Attestations NPU Medical Necessity Statement*: Inpatient hospitalization is medically necessary and the clinically appropriate intervention at this time. We will monitor medications and make changes as indicated. Patient will be in the hospital for over two midnights. Likely length of stay is 5-7 days. Coding Level of Care Code Established Pt Acute Fishing Lure Assembler for Wilber Estrella Patient Type Established History Problem Focused Exam Problem Focused Medical Decision Making Straight Forward Diagnoses Major depression, recurrent, chronic F33.9 Generalized anxiety disorder F41.1 Post traumatic stress disorder F43.10 Alcohol abuse F10.10
[2022-02-08] MEDS: hyDROXYzine 25 mg Capsule 50 MG PO (13:44)
[2022-02-08] MEDS: ibuprofen 600 mg Tablet PO (13:45)
[2022-02-08] MEDS: OLANZapine 5 mg ODT PO (13:45)
[2022-02-08 14:00] VITALS: BP 135/78; PULSE 88; RESP 16; TEMP 36.9; O2SAT 98
[2022-02-08 19:45] VITALS: BP 119/75; PULSE 86; RESP 14; TEMP 36.9; O2SAT 95
[2022-02-08] MEDS: quetiapine 100 mg Tablet 200 MG PO (20:39)
[2022-02-09 05:33] VITALS: BP 111/70; PULSE 79; RESP 18; TEMP 36.7; O2SAT 95
[2022-02-09] MEDS: thiamine 100 mg Tablet PO (09:02)
[2022-02-09] MEDS: multivitamin therapeutic Tablet 1 TAB PO (09:02)
[2022-02-09] MEDS: fluoxetine 20 mg Capsule PO (09:02)
[2022-02-09] MEDS: fluoxetine 10 mg Capsule PO (09:02)
[2022-02-09] MEDS: quetiapine 100 mg Tablet PO ×3 (09:02→19:34)
[2022-02-09] MEDS: folic acid 1 mg Tablet PO (09:02)
[2022-02-09] MEDS: nicotine 21 mg Patch 1 PATCH TRANSDERMA (09:27)
[2022-02-09 14:00] VITALS: BP 117/71; PULSE 107; RESP 18; TEMP 36.6; O2SAT 95
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
[2022-02-09] MEDS: ondansetron 4 MG Tablet PO (16:35)
[2022-02-09] MEDS: LORazepam 2 mg/mL INJ 1 mL IM (16:35)
[2022-02-09] MEDS: haloperidol inj 5 mg/mL INJ 1 mL IM (16:35)
--- NOTE | 2022-02-09 16:41 | PC.NURSE ---
Pt woke up from a very vivid dream/nightmare! Pt was physically nausious and had a visible tremor. Nurse talked with pt and administered 2mg Ativan IM also 5mg Haldol IM, tolerated the shot well.
[2022-02-09] MEDS: prazosin 1 mg Capsule 2 MG PO (19:34)
[2022-02-09] MEDS: quetiapine 100 mg Tablet 200 MG PO (19:34)
[2022-02-09 21:37] VITALS: RESP 16
[2022-02-10 06:00] VITALS: BP 114/78; PULSE 101; RESP 18; TEMP 36.4; O2SAT 97
[2022-02-10] MEDS: fluoxetine 10 mg Capsule PO (08:13)
[2022-02-10] MEDS: quetiapine 100 mg Tablet PO ×3 (08:14→20:37)
[2022-02-10] MEDS: folic acid 1 mg Tablet PO (08:14)
[2022-02-10] MEDS: multivitamin therapeutic Tablet 1 TAB PO (08:14)
[2022-02-10] MEDS: thiamine 100 mg Tablet PO (08:14)
[2022-02-10] MEDS: fluoxetine 20 mg Capsule PO (08:14)
[2022-02-10] MEDS: haloperidol 5 mg Tablet PO (08:22)
[2022-02-10 14:00] VITALS: BP 126/79; PULSE 108; RESP 16; TEMP 36.9; O2SAT 97
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
[2022-02-10] MEDS: prazosin 1 mg Capsule 2 MG PO (20:37)
[2022-02-10] MEDS: quetiapine 100 mg Tablet 200 MG PO (20:37)
[2022-02-10 21:55] VITALS: BP 110/76; PULSE 90; RESP 16; TEMP 36.6; O2SAT 97
[2022-02-11] MEDS: multivitamin therapeutic Tablet 1 TAB PO (08:49)
[2022-02-11] MEDS: folic acid 1 mg Tablet PO (08:49)
[2022-02-11] MEDS: fluoxetine 20 mg Capsule 40 MG PO (08:49)
[2022-02-11] MEDS: thiamine 100 mg Tablet PO (08:49)
[2022-02-11] MEDS: quetiapine 100 mg Tablet PO ×3 (08:50→21:09)
[2022-02-11 14:00] VITALS: BP 105/74; PULSE 89; RESP 16; TEMP 36.6; O2SAT 96
[2022-02-11] MEDS: haloperidol 5 mg Tablet PO (16:17)
[2022-02-11] MEDS: OLANZapine 5 mg ODT PO (16:17)
--- NOTE | 2022-02-11 16:44 | W.PM.NPUPNS ---
Subjective NPU Subjective: Patient is a 31-year-old white male with PTSD and depression admitted with recent onset of severe alcohol abuse currently on a CIWA. Patient had reported feeling better today. He reported having occasional nightmares but states that he had been feeling more stable. He had reported no desire to consider alcohol abuse treatment as he states that he did not have any problems with alcohol but acknowledged his family history of alcoholism. He had reported at times feeling anxious but reports that his depression appears to be getting better. He had been more cooperative on the milieu and had been attending groups. He continued to complain of some left hip pain and pain upon walking and requested some help with having his prosthesis examined. T Mental Status Exam MSE Comments: This is a slender white male in hospital scrubs with appropriate grooming and eye contact. He is alert and oriented x3. No abnormal movements except for mild psychomotor retardation. There was a gait abnormality having a left lower leg prosthesis. Cooperative with exam in no acute distress. Speech was normal rate, rhythm and volume. Mood described as better.. His affect was less restricted today. Thought process was linear logical and organized. thought content: He endorsed suicidal ideation but denied any hallucinations currently. He did appear to be responding to internal stimuli. Attention and concentration were impaired. Insight was fair and judgment was poor. Impulse control appeared fair. Vitals/I&O/Wt Last Vital Signs Temp 98 F 02/10/22 21:55 Pulse 90 02/10/22 21:55 Resp 16 02/10/22 21:55 BP 110/76 02/10/22 21:55 Pulse Ox 97 02/10/22 21:55 O2 Del Method 02/10/22 21:55 Data NPU : 02/06/22 09:50 02/06/22 09:50 A&P Assessment and plan (1) Major depression, recurrent, chronic: (2) Generalized anxiety disorder: (3) Post traumatic stress disorder: (4) Alcohol abuse: Plan 31-year-old white male with a history of PTSD major depressive disorder generalized anxiety disorder admitted with reemergence of auditory hallucinations increased depressed mood and exacerbation of PTSD symptoms along with increased alcohol consumption. 1.? Examined previous records, continue Seroquel at 100mg bid and 200mg at night. Continue Prozac to 40mg in am. Prazosin 2mg at night for nightmares. 2.? Encourage individual, group and milieu therapy 3.? Continue q-15 minute check for safety 4.? Recommend sober living treatment at the highest level of care to which the patient is willing to commit. Involuntary Hold Information 96 Hour Hold: 96 Hour Involuntary Admission: Yes 96 Hour Hold Ending Date: 11/01/20 96 Hour Hold Ending Time: 11:30 Attestations NPU Medical Necessity Statement*: Inpatient hospitalization is medically necessary and the clinically appropriate intervention at this time. We will monitor medications and make changes as indicated. Patient will be in the hospital for over two midnights. Likely length of stay is 5-7 days. Coding Level of Care Code Established Pt Acute Research Instrumentation Technician for Wilber Estrella Patient Type Established History Problem Focused Exam Problem Focused Medical Decision Making Straight Forward Diagnoses Major depression, recurrent, chronic F33.9 Generalized anxiety disorder F41.1 Post traumatic stress disorder F43.10 Alcohol abuse F10.10
[2022-02-11 19:45] VITALS: BP 126/76; PULSE 101; RESP 17; TEMP 36.7; O2SAT 97
[2022-02-11] MEDS: quetiapine 100 mg Tablet 200 MG PO (21:08)
[2022-02-11] MEDS: prazosin 1 mg Capsule 2 MG PO (21:09)
[2022-02-12 06:00] VITALS: RESP 18
[2022-02-12] MEDS: folic acid 1 mg Tablet PO (08:05)
[2022-02-12] MEDS: multivitamin therapeutic Tablet 1 TAB PO (08:05)
[2022-02-12] MEDS: thiamine 100 mg Tablet PO (08:05)
[2022-02-12] MEDS: quetiapine 100 mg Tablet PO (08:05)
[2022-02-12] MEDS: fluoxetine 20 mg Capsule 40 MG PO (08:05)
[2022-02-12 09:39] VITALS: RESP 18
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
== END 2022-02-12 11:04 | disposition home or self-care (01) | DRG 885 ==
LOC: ER 11:02 → NP 11:59
PROVIDERS: Admitting Provider Psychiatry & Neurology Psychiatry; Emergency Provider Emergency Medicine; PCP Urology; Visit Provider Psychiatry & Neurology Psychiatry
DX: F33.9 Major depressive disorder, recurrent, unspecified (principal); R45.851 Suicidal ideations; R44.0 Auditory hallucinations; F41.1 Generalized anxiety disorder; F43.12 Post-traumatic stress disorder, chronic; X95.9XXS Assault by unspecified firearm discharge, sequela; F10.10 Alcohol abuse, uncomplicated; Y90.0 Blood alcohol level of less than 20 mg/100 ml; F17.210 Nicotine dependence, cigarettes, uncomplicated; F15.11 Other stimulant abuse, in remission; T50.916A Underdosing of multiple unspecified drugs, medicaments and biological substances, initial encounter; Z89.512 Acquired absence of left leg below knee; Z62.810 Personal history of physical and sexual abuse in childhood; Z81.8 Family history of other mental and behavioral disorders; Z81.1 Family history of alcohol abuse and dependence; Z65.3 Problems related to other legal circumstances
CPT/HCPCS: 36415; 80053; 80306; 80307; 84443; 85025; 96372; 97165; 99285; J1630; J2060; J3411; Q0162